=== PATIENT | female | born 1965 | race Caucasian/White ===

== ENCOUNTER 2021-09-16 09:28 | Day surgery (SDC) | payer BC, SELFPAY ==
--- NOTE | 2021-09-13 13:11 | HO.ANESPROP2 ---
Documented by User: Estelita Shrestha NP 09/13/21 13:12 HPI - Anesthesia Eval Consult details Narrative: 56yo F for Colonoscopy [facility] Past Medical History Medical History No pertinent past medical history Surgical History Surgical History Hx of colonoscopy Social History Social History Patient Tobacco Use Status: Never used Tobacco Use of substances other than those prescribed or required for medical reasons: No Are you DNR?: No Advance Directives: No Advance Directives Information Provided: Yes Meds Allergies Allergy/AdvReac Type Severity Reaction Status Date / Time No Known Allergies Allergy Verified 09/10/21 14:15 Home Medications Medication Instructions Recorded Confirmed Last Taken Type progesterone micronized 100 mg 100 mg PO QAM 09/10/21 09/10/21 Unknown History capsule Exam Exam Date and Time: September 13, 2021 1311 Assessment and Plan Assessment Anesthesia Assessment: Chart Reviewed Documented by User: Kate Wing MD 09/16/21 10:41 [facility] Past Medical History Medical History No pertinent past medical history Surgical History Surgical History Hx of colonoscopy History of Problems with Anesthesia: No Social History Social History Patient Tobacco Use Status: Never used Tobacco Use of substances other than those prescribed or required for medical reasons: No Are you DNR?: No Advance Directives: No Advance Directives Information Provided: Yes Meds Allergies Allergy/AdvReac Type Severity Reaction Status Date / Time No Known Allergies Allergy Verified 09/10/21 14:15 Home Medications Medication Instructions Recorded Confirmed Last Taken Type progesterone micronized 100 mg 100 mg PO QAM 09/10/21 09/10/21 Unknown History capsule Exam Airway Mallampati Class: II TM Dist: >3cm Neck ROM: Full Loose/Missing/Broken Teeth: No Heart: RRR Lungs: CTA Assessment and Plan Final Anesthetic Review History of Problems with Anesthesia: No NPO: Yes ASA Class: I Final Preanesthetic Review: Meds/Allgs Chart Reviewed, Consent Obtained/Reviewed and Anes Risks/Benef Reviewed Patient Risk: Low Procedure Risk: Low Anesthetic Plan Anesthetic Plan: MAC: Disposition: Standard PACU
[2021-09-16 09:33] VITALS: BMI 21.6
[2021-09-16 09:42] VITALS: BP 143/68; PULSE 68; RESP 16; TEMP 36.3; O2SAT 99
[2021-09-16] MEDS: Lactated Ringers 1,000 ML 100 ML IVCONT (09:49)
[2021-09-16 11:28] VITALS: BP 104/67; PULSE 83; RESP 16; TEMP 36.9; O2SAT 98
--- NOTE | 2021-09-16 11:29 | PM.OP ---
Brief Operative Note Date of Service: 09/16/21 Pre-op diagnosis: Screening Post-op diagnosis: other (Diverticulosis) Procedure: Colonoscopy to the cecum and TI Surgeon: Jad George Anesthesia: MAC Was an X Ray Service Technician used for this Procedure?: No Estimated blood loss (mL): 0 Pathology: none sent Condition: stable Disposition: PACU
[2021-09-16 11:41] VITALS: BP 109/67; PULSE 58; RESP 16; O2SAT 98
[2021-09-16 11:56] VITALS: BP 111/64; PULSE 66; RESP 16; TEMP 36.8; O2SAT 98
--- NOTE | 2021-09-16 22:58 | OP_ITS ---
SURGEON: Jad George MD INDICATIONS: The patient presents for evaluation of colorectal cancer screening and family history of colon cancer. Full consent has been obtained from her for this, including risks of bleeding and perforation. PREOPERATIVE DIAGNOSIS: Colorectal cancer screening. POSTOPERATIVE DIAGNOSIS: Colorectal cancer screening, mild sigmoid diverticulosis, some internal and external hemorrhoids. PROCEDURE PERFORMED: Colonoscopy to the cecum and terminal ileum. ESTIMATED BLOOD LOSS: COMPLICATIONS: ANESTHESIA: Monitored anesthesia care. ASSISTANTS: SPECIMENS: DESCRIPTION OF PROCEDURE: The patient was placed in the left lateral decubitus position. The digital rectal exam revealed some external hemorrhoids. The Olympus video pediatric colonoscope was entered into the rectum and advanced easily to the cecum. Once in the cecum, I did identify a normal-appearing cecal pouch with appendiceal orifice and a normal-appearing ileocecal valve. The terminal ileum was cannulated and appeared normal. The scope was withdrawn back in the colon. The entire cecum and ileocecal valve appeared normal. The scope was slowly withdrawn assessing all mucosal surfaces carefully. Preparation was excellent. I did not visualize any sign of polyps, colitis, nor angiodysplasia. There was a mild amount of sigmoid diverticulosis. In the rectum, the scope was retroflexed visualizing small internal hemorrhoids, but no other pathology. The rectal mucosa appeared normal. The scope was straightened and withdrawn from the patient. She tolerated the procedure well and was returned to the recovery area in stable condition. IMPRESSION: 1. Diverticulosis. 2. Internal and external hemorrhoids. PLAN: Given her family history, I would recommend a repeat colonoscopy in 5 years for further screening. She will otherwise see me on a p.r.n. basis. Jad George MD RMW/CHRISTEN / [id number] MTDD
== END 2021-09-16 12:15 | disposition home or self-care (01) ==
PROVIDERS: PCP Internal Medicine; Visit Provider Internal Medicine
PROC: 0DJD8ZZ Inspection of Lower Intestinal Tract, Via Natural or Artificial Opening Endoscopic (ICD-10-PCS; CPT 45378; principal; 2021-09-16 10:30)
DX: Z12.11 Encounter for screening for malignant neoplasm of colon (principal); Z83.71 Family history of colonic polyps; K57.30 Diverticulosis of large intestine without perforation or abscess without bleeding; K64.8 Other hemorrhoids; K64.4 Residual hemorrhoidal skin tags
CPT/HCPCS: 45378